=== PATIENT | female | born 1950 ===

== ENCOUNTER → 2019-02-01 | Day surgery (SDC) | payer OTHER ==
[~2019-02-01] MED LIST: ALLEGRA ALLERG180 MG PO; FLONASE16 GM NASAL; REFRESH CLASSI1 EACH OP; TYLENOL EXTRA500 MG PO
== END | disposition home or self-care (01) ==
LOC: ADM 01-28 07:45 → CIR.AMB 07:00
DX: N72 Inflammatory disease of cervix uteri (principal)